=== PATIENT | female | born 1945 | race Caucasian/White ===

== ENCOUNTER 2018-02-09 05:48 | Day surgery (SDC) | payer MEDICARE ==
[~2018-02-09 05:48] MED LIST: SOD CHLORIDE 0.9% 1,000 ML IV
[2018-02-09] MEDS ORDERED: IODIXANOL LOCM 100 ML BTL (06:48)
[2018-02-09] MEDS ORDERED: LIDOCAINE 1% (MDV) 20 ML INJ (06:48)
[2018-02-09 06:58] LABS: ADD MAN DIFF? NO
[2018-02-09 07:03] LABS: ABNORMAL IP MESSAGE 1; BASOPHILS % 0.6 % (0.0-2.0); EOSINOPHILS # 0.5 10^3/ul (0.0-0.5); EOSINOPHILS % 7.7 % (0.0-7.0); HEMATOCRIT 31.7 % (37.0-47.0); HEMOGLOBIN 11.4 g/dl (12.0-16.0); LYMPHOCYTES % 42.6 % (15.0-51.0); MEAN CORPUSCULAR HEMOGLOBIN 32.1 pg (29.0-33.0); MEAN CORPUSCULAR VOLUME 89.3 fl (82.0-101.0); MONOCYTE # 0.4 10^3/ul (0.3-0.9); MONOCYTES % 6.3 % (0.0-11.0); NEUTROPHILS % 42.5 % (39.0-77.0); PLATELET COUNT 219 10^3/UL (140-415); RED BLOOD COUNT 3.55 10^6/ul (4.20-5.40); RED CELL DISTRIBUTION WIDTH 12.5 % (11.5-14.5)
[2018-02-09 07:15] LABS: POSITIVE DIFF @See below
[2018-02-09] MEDS ORDERED: VERAPAMIL 5 MG INJ (07:22)
[2018-02-09] MEDS ORDERED: HEPARIN 1000 UNITS/ML 10 ML INJ (07:22)
[2018-02-09] MEDS ORDERED: FENTAnyl 50 MCG/ML VIAL (07:22)
[2018-02-09] MEDS ORDERED: MIDAZOLAM 1 MG/ML 2 ML INJ (07:22)
[2018-02-09] MEDS ORDERED: NITROGLYCERIN (IC) 100 MCG/ML INJ (07:23)
[2018-02-09 07:26] LABS: ANION GAP 19 (8-16); CARBON DIOXIDE 23 mmol/L (21-31); CHLORIDE 108 mmol/L (97-110); GLUCOSE 122 mg/dl (70-220)
[2018-02-09 07:28] LABS: BLOOD UREA NITROGEN 12 mg/dl (7-20); CALCIUM 9.5 mg/dl (8.4-10.2); CREATININE 0.67 mg/dl (0.44-1.00); INR 1.07; POTASSIUM 3.9 mmol/L (3.5-5.1); PT RATIO 1.1; SODIUM 146 mmol/L (135-144)
[2018-02-09 07:29] LABS: PARTIAL THROMBOPLASTIN TIME 32.3 Sec (25.0-35.0)
[2018-02-09] MEDS ORDERED: SOD CHLORIDE 0.9% 1,000 ML IV (08:16)
[2018-02-09] MEDS ORDERED: ONDANSETRON 4 MG INJ IV (08:30)
[2018-02-09] MEDS ORDERED: ACETAMINOPHEN 325 MG TAB PO (08:30)
[2018-02-09] MEDS ORDERED: morphine 2 MG INJ IV (08:30)
[2018-02-09] MEDS ORDERED: NACL 0.9% 3 ML SYG IV (09:00)
[2018-02-09] MEDS ORDERED: MIDAZOLAM 1 MG/ML 2 ML INJ IV (09:00)
[2018-02-09] MEDS ORDERED: ASPIRIN 325 MG TAB PO (09:00)
== END 2018-02-09 12:00 | disposition home or self-care (01) ==
LOC: SDS 05:48
DX: I25.10 Atherosclerotic heart disease of native coronary artery without angina pectoris (principal); R94.39 Abnormal result of other cardiovascular function study; I10 Essential (primary) hypertension
CPT/HCPCS: 80048; 82962; 85025; 85610; 85730; 93005; 93458